=== PATIENT | female | born 1985 | race American Indian/Alaskan Native ===

== ENCOUNTER 2016-08-20 10:29 | Outpatient (CLI) | payer MEDICAID ==
[2016-08-20] MEDS ORDERED: NITRATEST PAPER MC ONE (12:00)
[2016-08-20] MEDS ORDERED: LACTATED RINGERS 500 ML IV ONE (12:00)
[2016-08-20 12:24] VITALS: BP 103/61
--- NOTE | 2016-08-20 13:46 | Ultrasound Report ---
ULTRASOUND OB LIMITED History: labor Technique: Transabdominal ultrasound with Doppler interrogation. Gestation: Single Position: Cephalic Amniotic Fluid: Normal GUILHERME = 10.4 cm Placenta: Anterior Placental Grade: 1 No evidence for abruption. Heart Rate: 139 BPM
== END 2016-08-20 12:52 | disposition home or self-care (01) ==
LOC: TRG 10:29
PROVIDERS: ATTEND Obstetrics & Gynecology Gynecology
DX: O47.03 False labor before 37 completed weeks of gestation, third trimester (principal); Z3A.32 32 weeks gestation of pregnancy
CPT/HCPCS: 59025; 76815